=== PATIENT | female | born 1955 | race Caucasian/White ===

== ENCOUNTER → 2018-07-26 | Outpatient (CLI) | payer MEDICARE ==
--- NOTE | 2018-07-26 11:11 | US ---
EXAMINATION TYPE: US liver DATE OF EXAM: 07/26/2018 COMPARISON: NONE CLINICAL HISTORY: R94.5 Abnormal results of liver function studies. Pt states abnormal LFT's EXAM MEASUREMENTS: Liver Length: 18.7 cm Gallbladder Wall: 0.3 cm CBD: 0.4 cm Right Kidney: 10.6 x 4.3 x 5.0 cm Pancreas: wnl Liver: Enlarged, heterogeneous, difficult to penetrate Gallbladder: Mobile gallstones Evidence for sonographic Davis's sign: Yes CBD: wnl Right Kidney: No evidence of hydro, upper and lower poles gassed out IMPRESSION: 1. Cholelithiasis. Mild borderline gallbladder wall thickening may be present there is a positive Mur phy sign during the examination. Correlate for acute cholecystitis. A Yellow level critical message alert has been initiated for Nicolle Newsome MD via the [employer] Critical Results System on 07/26/2018 11:08 AM. This message alert has been sent to Nicolle Newsome MD via the preferences provided by the clinician for the receipt of Radiology Critical Findings. Parul castañeda ID [id number].
== END | disposition home or self-care (01) ==
LOC: RADUSWWP 09:55
PROVIDERS: ATTEND Internal Medicine
DX: K80.20 Calculus of gallbladder without cholecystitis without obstruction (principal)
CPT/HCPCS: 76705

== ENCOUNTER → 2018-11-22 | Outpatient (CLI) | payer MEDICARE ==
--- NOTE | 2018-11-22 13:35 | XR ---
EXAMINATION TYPE: XR chest 2V DATE OF EXAM: 11/22/2018 COMPARISON: None INDICATION: Cough TECHNIQUE: Frontal and lateral views of the chest are obtained. FINDINGS: The heart size is normal. The pulmonary vasculature is normal. The lungs are clear. IMPRESSION: 1. No acute pulmonary process.
== END | disposition home or self-care (01) ==
LOC: RADXRYALE 13:18
PROVIDERS: ATTEND Internal Medicine
DX: R05 Cough (principal)
CPT/HCPCS: 71046

== ENCOUNTER → 2021-06-14 | Outpatient (CLI) | payer MEDICARE ==
--- NOTE | 2021-06-14 10:35 | CT ---
EXAMINATION TYPE: CT brain wo/w con DATE OF EXAM: 06/14/2021 COMPARISON: None available HISTORY: Headache. CT DLP: 2273 mGycm Automated exposure control for dose reduction was used. TECHNIQUE: CT scan of the brain is performed without and with IV contrast administration. FINDINGS: Ballooning of the sella turcica with partial empty sella. Right external capsule 10 mm hypodensity wh ich could represent an ischemic focus however other lesion cannot be excluded. No corresponding enhan cement or surrounding vasogenic edema. Mild bilateral cerebral periventricular white matter hypodensi ties likely representing mild chronic microvascular ischemic changes. No acute intracranial hemorrhage. No gross acute cortical infarct. No midline shift, herniation or ve ntriculomegaly. Unremarkable cook-white matter differentiation, basal cisterns and CP angles. No othe r gross space-occupying lesion, vasogenic edema or mass effect. No area of abnormal enhancement, meningeal thickening or hyperenhancement. Patent major intracranial vessels. Unremarkable orbits. Clear visualized paranasal sinuses. Opacified left inferior mastoid air cells. No aggressive bone lesion. IMPRESSION: 10 mm right external capsule hypodensity likely representing an ischemic focus rather than a nonenhan cing lesion. No surrounding vasogenic edema or mass effect. Further MRI assessment can be considered. Otherwise no acute intracranial abnormality or space-occupying lesion. No intracranial abnormal enhan cement.
== END | disposition home or self-care (01) ==
LOC: RADCTMAIN 08:22
PROVIDERS: ATTEND Internal Medicine
DX: R51.9 Headache, unspecified (principal)
CPT/HCPCS: 82565; 84520; 70470; 36415; Q9967

== ENCOUNTER → 2024-01-09 | Outpatient (CLI) | payer MEDICARE ==
--- NOTE | 2024-01-22 08:54 | MM ---
Reason for Exam: Screening (asymptomatic). Last mammogram was performed 3 year(s) and 6 month(s) ago. Patient History: Menarche at age 13. First Full-Term at age 18. Left ovary removed at age 26. Right ovary removed at age 26. Hysterectomy at age 26. Postmenopausal. Patient used Hormonal Contraceptives for 5 years. 1999, Stereotactic Core Biopsy on the Left side. Sister (mary) had breast cancer, age 35. Risk Values: Sobeida 5 year model risk: 3.6%. NCI Lifetime model risk: 10.2%. Prior Study Comparison: 07/29/2019 Bilateral Screening Mammogram, [facility]. 07/30/2020 Bilateral Screening Mammogram, [facility]. Tissue Density: The breasts are heterogeneously dense, which may obscure small masses. Findings: Analyzed By CAD. Loop recorder is present obscuring portions of the left breast. Left breast clip. Right breast: There is no suspicious group of microcalcifications or new suspicious mass. Benign-appearing calcifications right breast. Left breast: There is no suspicious group of microcalcifications or new suspicious mass. Overall Assessment: Benign, BI-RAD 2 Management: Screening Mammogram of both breasts in [address] [facility] will attempt to contact patient to return for supplemental views and ultrasound if indicated. Patient should continue monthly self-breast exams. A clinical breast exam by your physician is recommended on an annual basis. This exam should not preclude additional follow-up of suspicious palpable abnormalities. Note on Sobeida scores and lifetime risk: 1. A Sobeida score greater than 3% is considered moderate risk. If this is the case, consider specialist referral to assess eligibility for a risk reducing agent. 2. If overall lifetime risk for the development of breast cancer is 20% or higher, the patient may qualify for future screening with alternating mammogram and breast MRI. [facility], , 01/22/2024 8:51 AM. Electronically signed and approved by: Roman Doherty DO
== END | disposition home or self-care (01) ==
LOC: RADMAMWWP 14:20
PROVIDERS: ATTEND Internal Medicine
DX: Z12.31 Encounter for screening mammogram for malignant neoplasm of breast (principal); R92.333 Mammographic heterogeneous density, bilateral breasts; Z78.0 Asymptomatic menopausal state; Z80.3 Family history of malignant neoplasm of breast; Z90.722 Acquired absence of ovaries, bilateral; Z92.0 Personal history of contraception
CPT/HCPCS: 77063; 77067

== ENCOUNTER → 2024-01-30 | Day surgery (SDC) | payer MEDICARE ==
[2024-01-28 15:01] VITALS: BMI 35.4
[~2024-01-30] MED LIST: ALPRAZolam 0.25 MG TAB PO PRN; ALPRAZolam 0.5 MG TAB PO PRN; HEPARIN SODIUM,PORCINE (1 ML) 2,500 UNIT in SODIUM CHLORIDE 0.9% 250 ML IRRIGATION PRN; HEPARIN SODIUM,PORCINE 10,000 UNIT in SODIUM CHLORIDE 0.9% 1,000 ML IRRIGATION PRN; NITROGLYCERIN SL TABS 0.4 MG TAB SUBLINGUAL PRN
[2024-01-30] MEDS: IV FLUID CONTINUATION 1,000 ML IV ONE (09:12)
[2024-01-30] MEDS: SODIUM CHLORIDE 0.9% 1,000 ML in EMPTY BAG 1 BAG IV SCH (09:12)
[2024-01-30] MEDS: ATORVASTATIN 80 MG TAB PO STA (09:15)
[2024-01-30] MEDS: ASPIRIN 325 MG TAB PO STA (09:16)
[2024-01-30 09:31] VITALS: RESP 16; TEMP 98.5
[2024-01-30 10:20] LABS: Basophils # (A) 0.1 k/uL (0-0.2); Basophils % (A) 1 %; Eosinophils # (A) 0.2 k/uL (0-0.7); Eosinophils % (A) 3 %; HCT 42.3 % (34.0-46.0); HGB 13.2 gm/dL (11.4-16.0); Hypochromasia Slight; Lymphocytes # (A) 1.9 k/uL (1.0-4.8); Lymphocytes % (A) 29 %; MCH 29.3 pg (25.0-35.0); MCHC 31.1 g/dL (31.0-37.0); MCV 94.2 fL (80.0-100.0); Mean Platelet Volume 7.9; Monocytes # (A) 0.4 k/uL (0-1.0); Monocytes % (A) 6 %; Neutrophils # (A) 3.8 k/uL (1.3-7.7); Neutrophils % (A) 59 %; Platelet Count 292 k/uL (150-450); RBC 4.49 m/uL (3.80-5.40); RDW 12.9 % (11.5-15.5); WBC 6.6 k/uL (3.8-10.6)
[2024-01-30 10:25] LABS: African American GFR (CKD) 68 (>60 ml/min/1.73 sqM); Anion Gap 8 mmol/L; Blood Urea Nitrogen 25 mg/dL (7-17); Calcium 9.5 mg/dL (8.4-10.2); Carbon Dioxide 26 mmol/L (22-30); Chloride 106 mmol/L (98-107); Glucose 96 mg/dL (74-99); Non-African American GFR(CKD) 59 (>60 ml/min/1.73 sqM); Potassium 4.3 mmol/L (3.5-5.1); Sodium 140 mmol/L (137-145)
[2024-01-30] MEDS: MIDAZOLAM 2 MG/2 ML VIAL IVP ONE (10:43)
[2024-01-30] MEDS: fentaNYL (PF) 50 MCG/ML 2 ML AMP IVP ONE (10:43)
[2024-01-30] MEDS: LIDOCAINE 1% INJ 10MG/ML (20 ML MDV) SQ ONE (10:45)
[2024-01-30] MEDS: VERAPAMIL SYRINGE (5 MG/10 ML) INTRAARTER ONE (10:46)
[2024-01-30] MEDS: HEPARIN SODIUM 1,000 UN/ML (10ML VL) IVP ONE (10:48)
[2024-01-30] MEDS: IOPAMIDOL-370 100ML BTL INJ ONE (10:53)
[2024-01-30] MEDS: SODIUM CHLORIDE 0.9% 1,000 ML IV ONE (10:53)
[2024-01-30] MEDS: HEPARIN SODIUM,PORCINE (1 ML) 2,500 UNIT in SODIUM CHLORIDE 0.9% 250 ML IRRIGATION ONE (10:54)
[2024-01-30] MEDS: HEPARIN SODIUM,PORCINE 10,000 UNIT in SODIUM CHLORIDE 0.9% 1,000 ML IRRIGATION ONE (10:54)
--- NOTE | 2024-01-30 10:58 | P.CARDCATH ---
Description of Procedure: PROCEDURES PERFORMED: Left heart catheterization, bilateral coronary angiography, ultrasound guided arterial access INDICATION: Chronic angina CONSENT:I have discussed the risks, benefits and alternative therapies for the above-mentioned procedure and for both sedation/analgesia as well as necessary blood product administration, if indicated, as they pertain to this patient. The patient has indicated understanding and acceptance of the risks and procedures discussed. PROCEDURE: After the risks, benefits and alternatives of the above mentioned procedure explained in detail with the patient, informed consent was obtained. Patient was taken to the catheterization lab and prepped and draped in usual fashion. Ultrasound guidance was used to assess for arterial access. 1% lidocaine was used to anesthetize the right radial artery. A 6-Danish sheath was placed in the right radial artery using modified Seldinger technique and ultrasound guidance. Left coronary angiography was performed with a 5-Danish JL 3.5 catheter and right coronary angiography was performed with a 5-Danish FR5 catheter in various views. A 5-Danish FR5 catheter was inserted into the left ventricle and pressure measurements were obtained. The right radial sheath was removed and a TR band was placed with hemostasis achieved. The patient tolerate d the procedure well. Patient was transported back to the post catheterization holding area in stable condition. Conscious Sedation: Patient was monitored under the direct supervision of myself for conscious sedation using Versed and fentanyl for a total duration of 9 minutes HEMODYNAMICS: Aorta: 43/73 LV:138/8, LVEPD 16 SELECTIVE CORONARY ARTERIOGRAPHY: LEFT MAIN: The left main is a large caliber vessel which bifurcates into the LAD and circumflex. There is no significant stenosis. LEFT ANTERIOR DESCENDING CORONARY ARTERY: LAD is a large caliber vessel which wraps around to the apex. There is no significant stenosis. LEFT CIRCUMFLEX CORONARY ARTERY: Left circumflex is a moderate caliber vessel without significant stenosis. RIGHT CORONARY ARTERY: The right coronary artery is a large caliber vessel which gives off a PDA and PLV branch and is the dominant vessel. There is no significant stenosis. FINAL IMPRESSION: 1. Normal coronary arteries as described above. 2. Mildly elevated left sided filling pressures PLAN: 1. Aggressive risk factor modification per most recent ACC/AHA guidelines. 2. Follow-up in the office in 1-2 weeks.
[2024-01-30 18:22] VITALS: BP 120/65; PULSE 72
== END ==
LOC: CATHCVL 08:49
PROVIDERS: ATTEND Internal Medicine
DX: I20.9 Angina pectoris, unspecified (principal); I10 Essential (primary) hypertension; E78.5 Hyperlipidemia, unspecified; R06.09 Other forms of dyspnea; Z79.899 Other long term (current) drug therapy
CPT/HCPCS: 93458; 80048; 85025; 99152; J2250; J1644 ×3; J2003; J3010; Q9967

== ENCOUNTER → 2024-08-22 | Outpatient (CLI) | payer MEDICARE ==
--- NOTE | 2024-08-22 10:30 | CT ---
EXAMINATION TYPE: CT shoulder RT wo con DATE OF EXAM: 08/22/2024 10:22 AM COMPARISON: None CLINICAL INDICATION: Female, 69 years old with history of M19.011 PRIMARY OSTEOARTHRITIS, RIGHT; PHH , fx of radial head from fall TECHNIQUE: Axial images were obtained of the CT shoulder RT wo con, Additional coronal and sagittal r eformatted images and soft tissue and bone window were obtained for review. 3-D reconstruction was cr eated on a separate workstation. Contrast used: mL of , (None if empty) Oral contrast used: (None if empty) CT DLP: 549.7 mGycm, Automated exposure control for dose reduction was used. FINDINGS: Mild degeneration of the acromioclavicular joint. There is joint space narrowing and osteop hyte formation of the glenohumeral joint with subchondral cystic change. Pcyp-oh-cpqe articulation pr esent. Here is no evidence of fracture, subluxation, or dislocation. No significant soft tissue swel ling or joint effusion is identified. No focal muscular atrophy or edema is identified. No radiopaque foreign body identified. IMPRESSION: 1. No evidence of fracture. 2. Severe right shoulder glenohumeral joint osteoarthrosis. Mild right shoulder osteoarthrosis of th e acromial clavicular joint. [facility], , 08/22/2024 10:28 AM
[2024-08-22 10:32] LABS: Prothrombin Time 11.2 sec (10.0-12.5)
[2024-08-22 15:44] LABS: HCT 40.5 % (37.2-46.3); HGB 12.8 g/dL (12.0-15.0); MCH 29.2 pg (27.0-32.0); MCHC 31.6 g/dL (32.0-37.0); MCV 92.5 FL (80.0-97.0); Mean Platelet Volume 10.8 FL (9.5-12.2); NRBC Per 100 WBC 0 X 10*3/uL (0.00-0.01); Platelet Count 265 X 10*3/uL (140-440); RBC 4.38 X 10*6/uL (4.10-5.20); RDW 13.6 % (11.5-14.5); WBC 5.91 X 10*3/uL (4.50-10.00)
[2024-08-22 16:02] LABS: ALT 73 U/L (8-44); AST 73 U/L (13-35); Albumin 4.1 g/dL (3.8-4.9); Albumin/Globulin Ratio 1.71 Ratio (1.60-3.17); Alkaline Phosphatase 79 U/L (41-126); Blood Urea Nitrogen 18.4 mg/dL (9.0-27.0); Calcium 9.4 mg/dL (8.7-10.3); Carbon Dioxide 21.8 mmol/L (21.6-31.8); Chloride 108 mmol/L (96-109); Globulin 2.4 g/dL (1.6-3.3); Glucose 91 mg/dL (70-110); Sodium 142 mmol/L (135-145); Total Bilirubin 0.5 mg/dL (0.3-1.2); Total Protein 6.5 g/dL (6.2-8.2)
== END | disposition home or self-care (01) ==
LOC: RADCTMAIN 09:09
PROVIDERS: ATTEND Orthopaedic Surgery Sports Medicine
DX: Z01.818 Encounter for other preprocedural examination (principal); M19.011 Primary osteoarthritis, right shoulder; Z22.322 Carrier or suspected carrier of Methicillin resistant Staphylococcus aureus
CPT/HCPCS: 80053; 85027; 85610; 85730; 87070

== ENCOUNTER → 2024-09-07 | Day surgery (SDC) | payer MEDICARE ==
[2024-08-29 14:30] VITALS: BMI 36.3
[~2024-09-07] MED LIST changes: +ACETAMINOPHEN TAB 500 MG TAB PO PRN; -ALPRAZolam 0.25 MG TAB PO PRN; -ALPRAZolam 0.5 MG TAB PO PRN; +GABAPENTIN 300 MG CAP PO PRN; -HEPARIN SODIUM,PORCINE (1 ML) 2,500 UNIT in SODIUM CHLORIDE 0.9% 250 ML IRRIGATION PRN; -HEPARIN SODIUM,PORCINE 10,000 UNIT in SODIUM CHLORIDE 0.9% 1,000 ML IRRIGATION PRN; +MELOXICAM 7.5 MG TAB PO PRN; -NITROGLYCERIN SL TABS 0.4 MG TAB SUBLINGUAL PRN; +ONDANSETRON 4 MG/2 ML VIAL IVP PRN; +TRANEXAMIC 1,000 MG/100ML-NACL 1,000 MG in SALINE 1 100ML.BAG IVPB PRN
== END ==
LOC: OR 09-04 06:22
PROVIDERS: ATTEND Orthopaedic Surgery Sports Medicine
DX: Z53.8 Procedure and treatment not carried out for other reasons (principal); M19.011 Primary osteoarthritis, right shoulder